=== PATIENT | male | born 1975 | race Two or more races ===

== ENCOUNTER 2021-06-28 14:10 | Emergency (ER) | payer OTHER ==
[~2021-06-28] VITALS: Ht 182.9 cm; Wt 83.5 kg
== END 2021-06-28 17:02 | disposition home or self-care (01) ==
LOC: ER 14:10
DX: S00.81XA Abrasion of other part of head, initial encounter (principal); V47.5XXA Car driver injured in collision with fixed or stationary object in traffic accident, initial encounter
CPT/HCPCS: 70450; 90471; 90714; 99284-25